=== PATIENT | female | born 1985 | race Asian ===

== ENCOUNTER 2018-12-27 16:09 | Emergency (ER) | payer SELFPAY ==
--- NOTE | 2018-12-27 16:18 | EDPHY ---
H & P Time Seen by Provider: 12/27/18 16:10 HPI/ROS: Chief Complaint: Fall, elbow injury HPI: Patient was at a dance studio performing a dance move when she was lifted up in the air. She fell from a height of about 3 ft onto an outstretched arm and hyperextended her elbow. She felt pop immediate onset of pain. She has a noted deformity. No prior injuries. Patient refused pain medicine by EMS. ROS: 10 systems were reviewed and were negative except those elements noted in the HPI. PMH: Denies Social History: No smoking, no alcohol, no recreational drug use Family History: non-contributory Physical Exam: Gen: Awake, Alert, No Distress HEENT: Nose: no rhinorrhea Eyes: PERRLA, EOMI Mouth: Moist mucosa Neck: Supple, no JVD Chest: nontender, lungs clear to auscultation Heart: S1, S2 normal, no murmur Abd: Soft, non-tender, no guarding Back: no CVA tenderness, no midline tenderness Ext: Left elbow held in hyperextension, noted deformity, diffuse pain, moderate swelling. 2+ radial ulnar pulses. Sensations intact in the radial, median, and ulnar nerve distribution. Capillary refills less than 3 sec. Skin: no rash Neuro: CN II-XII intact, Sensation grossly intact, Strength 5/5 in bilateral upper and lower extremities Constitutional: Initial Vital Signs Temperature (C) 36.3 C 12/27/18 16:14 Heart Rate 65 12/27/18 16:14 Respiratory Rate 14 12/27/18 16:14 Blood Pressure 122/93 H 12/27/18 16:14 O2 Sat (%) 100 12/27/18 16:14 O2 Delivery Mode [Post Room Air Procedure 2nd] O2 Delivery Mode [Post Non-Rebreather Mask Procedure 1st] O2 Delivery Mode [Procedural Non-Rebreather Mask 1st] O2 Delivery Mode [.Immediate Non-Rebreather Mask Pre-Procedure] O2 (L/minute) [Post Procedure 10 1st] O2 (L/minute) [Procedural 1st] 15 O2 (L/minute) [.Immediate Pre- 15 Procedure] Allergies/Adverse Reactions: No Known Allergies Allergy (Unverified 12/27/18 16:21) Medical Decision Making - Diagnostics Imaging Results: Imaging Impressions Elbow X-Ray 02/03/19 16:15 Impression: 1. Left elbow dislocation. 2. No definite fracture. 3. Recommend postreduction images. Elbow X-Ray 12/27/18 16:55 Impression: 1. No residual dislocation. 2. No definite fracture, although suboptimal due to overlying cast and positioning. Procedures: Procedure: Procedural sedation. A pre-sedation evaluation was completed on the patient at 1645. Patient is an appropriate candidate for procedural sedation. The risks of the sedation were discussed with the patient. A time out was completed. The patient was sedated with 50 mcg of fentanyl and 50 mg of propofol fall. The patient was monitored with continuous pulse oximetry and desk monitor. There were no complications and no significant hypoxemia. I remained at the bedside for the sedation. The total time I spent in the procedural sedation was 15 min. Procedure: Dislocation reduction. The dislocation of the left elbow was reduced using traction counter traction with anterior mobilization of the olecranon technique without complications. Post reduction the patient's neurovascular exam is normal. Post reduction x-ray demonstrates reduction of the joint to the anatomic position. The procedure was performed by myself. - Data Points Medications Given: Discontinued Medications Fentanyl (Sublimaze) 50 mcg IVP EDNOW ONE Stop: 12/27/18 16:37 Last Admin: 12/27/18 16:41 Dose: 50 mcg Departure - Departure Disposition: Home, Routine, Self-Care Clinical Impression: Elbow dislocation Condition: Good Instructions: Elbow Dislocation (ED), How to Use a Sling (ED), Moderate Sedation (ED), Splint Care (ED) Additional Instructions: Take ibuprofen, 600 mg every 8 hr. You may alternate with acetaminophen, 1000 mg every 8 hr. Apply ice for 15 min of every hour while awake. Follow up with orthopedist in 2-3 days for further evaluation. Keep your arm in the splint until your seen in follow-up. Return emergency department for increasing pain, swelling, numbness, tingling, or any other concerns. Referrals: Taj Bower MD [Medical Doctor] - As per Instructions Stand Alone Forms: Airline Excuse
[2018-12-27] MEDS ORDERED: fentaNYL 100 MCG/2 ML INJ ONE (16:35)
[2018-12-27] MEDS ORDERED: fentaNYL 100 MCG/2 ML INJ IVP ONE (16:36)
[2018-12-27] MEDS ORDERED: PROPOFOL 200 MG/20 ML VIAL ONE (16:42)
[2018-12-27 18:23] VITALS: BP 122/98
[2018-12-27] MEDS ORDERED: PROPOFOL 200 MG/20 ML VIAL IVP ONE (18:24)
== END 2018-12-27 18:28 | disposition home or self-care (01) ==
LOC: EDBD 16:09
PROC: 0RSMXZZ Reposition Left Elbow Joint, External Approach (ICD-10-PCS; principal; 2018-12-27)
DX: S53.105A Unspecified dislocation of left ulnohumeral joint, initial encounter (principal); W19.XXXA Unspecified fall, initial encounter; Y92.89 Other specified places as the place of occurrence of the external cause; Y99.9 Unspecified external cause status; Y93.41 Activity, dancing
CPT/HCPCS: 96374; A4565; J2704; J3010